=== PATIENT | female | born 1995 | race Caucasian/White ===

== ENCOUNTER → 2017-05-05 | Emergency (ER) | payer BC, MEDICAID ==
[~2017-05-05] VITALS: Ht 167.6 cm; Wt 136.1 kg
[~2017-05-05] MED LIST: BUPROPION XL300 MG PO
== END ==
LOC: ED 19:19
DX: S50.862A Insect bite (nonvenomous) of left forearm, initial encounter (principal); Z88.0 Allergy status to penicillin; Z79.899 Other long term (current) drug therapy; W57.XXXA Bitten or stung by nonvenomous insect and other nonvenomous arthropods, initial encounter
CPT/HCPCS: 96372; 99282; J1200